=== PATIENT | female | born 1980 | race Caucasian/White ===

== ENCOUNTER 2016-09-15 10:56 | Day surgery (SDC) | payer MEDICAID ==
[2016-09-13 13:40] LABS: ADD UMIC YES; URINE BILIRUBIN (Dip) NEGATIVE (NEGATIVE); URINE BLOOD (Dip) TRACE (NEGATIVE); URINE COLOR LT. YELLOW (YELLOW); URINE GLUCOSE (Dip) NEGATIVE (NEGATIVE); URINE KETONES (Dip) NEGATIVE (NEGATIVE); URINE LEUKOCYTE ESTERASE (Dip) 2+ (NEGATIVE); URINE NITRITE (Dip) NEGATIVE (NEGATIVE); URINE TOTAL PROTEIN (Dip) NEGATIVE (NEGATIVE); URINE UROBILINOGEN (Dip) 0.2 E.U./dL (0.1-1.0)
[2016-09-13 13:41] LABS: BASOPHILS % 0.4 % (0.0-2.0); EOSINOPHILS # 0.1 10^3/ul (0.0-0.5); EOSINOPHILS % 1.9 % (0.0-7.0); HEMATOCRIT 34.6 % (37.0-47.0); HEMOGLOBIN 11.8 g/dl (12.0-16.0); LYMPHOCYTES # 1.9 10^3/ul (0.8-2.9); LYMPHOCYTES % 32.6 % (15.0-51.0); MEAN CORPUSCULAR HEMOGLOBIN 29.2 pg (29.0-33.0); MEAN CORPUSCULAR HGB CONC 34.1 g/dl (32.0-37.0); MEAN CORPUSCULAR VOLUME 85.4 fl (82.0-101.0); MEAN PLATELET VOLUME 7.3 fl (7.4-10.4); MONOCYTE # 0.4 10^3/ul (0.3-0.9); MONOCYTES % 6.4 % (0.0-11.0); NEUTROPHIL # 3.3 10^3/ul (1.6-7.5); NEUTROPHILS % 58.7 % (39.0-77.0); PLATELET COUNT 250 10^3/UL (140-440); RED BLOOD COUNT 4.05 10^6/ul (4.20-5.40); UNCORRECTED WBC 5.7 10^3/ul (4.8-10.8); WHITE BLOOD COUNT 5.7 10^3/ul (4.8-10.8)
[2016-09-13 13:45] LABS: CONDITION 1
[2016-09-13 13:52] LABS: INR 0.91; PARTIAL THROMBOPLASTIN TIME 28.2 Sec (25.0-35.0); PROTIME 12.2 Sec (12.2-14.2)
[2016-09-13 14:27] LABS: BACTERIA,URINE FEW; SQUAMOUS EPITHELIAL CELL,UR MODERATE; URINE RBCS 0-2 /HPF (0)
[2016-09-14 13:43] VITALS: Ht 172.7 cm; Wt 85.0 kg
--- NOTE | 2016-09-14 16:57 | PREOPHP ---
DATE OF ADMISSION: 09/15/2016 REASON FOR ADMISSION: Laparoscopic tubal ligation. HISTORY OF PRESENT ILLNESS: This is a 36-year-old female, 3, para 3, who has requested ster ilization on the basis of multiparity. The alternatives to this method and benefits, the risks and possible complications during and after the procedure, including the failure rate of 1% was carefull y explained to the patient in the office. Complications like infection, hemorrhage, pelvic organ in jury during the procedure was discussed in detail. She was allowed to ask questions and all her que stions were answered to her satisfaction and she signed the appropriate surgical informed consent. PAST MEDICAL HISTORY: The patient denies any medical problems including cardiovascular disease, marko betes, renal disease, liver disease, thyroid disease or neurological problems. ALLERGIES: NO KNOWN ALLERGIES. MEDICATIONS: She takes no medications on a regular basis. OBSTETRICAL HISTORY: The patient had 3 pregnancies with 3 normal vaginal deliveries. FAMILY HISTORY: Noncontributory. REVIEW OF SYSTEMS: A 12-point review of systems is noncontributory. PHYSICAL EXAMINATION: GENERAL: Well-developed and nourished, in no distress, alert and oriented x3 with a height of 5 fee t 3 inches and a weight of 180 pounds. VITAL SIGNS: Showed temperature to be 98, blood pressure 101/58, respirations 16 per minute, the pu lse is 80/minute, regular. HEENT: Within normal limits. NECK: Supple. Thyroid is nonpalpable. There is no lymphadenopathy. BREASTS: Showed no masses or lumps. LUNGS: Clear to percussion and auscultation. HEART: Normal sinus rhythm without a murmur. ABDOMEN: Soft without organomegaly or hernias. PELVIC: Normal external genitalia. Vagina is normal. Cervix is normal without lesions. Bimanual exam: The uterus small, firm, in the midline. There are no adnexal masses. EXTREMITIES: Within normal limits. NEUROLOGIC: Also normal. IMPRESSION: Multiparity. The patient desires sterilization. PLAN: The patient is to be admitted tomorrow 09/15/2016. Dictated By: IVETTE ARREOLA/JUAN PABLO Conf#: [id number] DID#: [id number]
[2016-09-15] VITALS (11 sets, daily range): BP systolic 102–124; BP diastolic 55–63; PULSE 58–79; RESP 12–19
[~2016-09-15] VITALS: Ht 172.7 cm; Wt 85.0 kg
[~2016-09-15 10:56] MED LIST: ATROPINE 1 MG/10 ML SYRINGE IV PRN; CEFAZOLIN 1 GM INJ ONE; DEXAMETHASONE 4 MG/ML 1 ML INJ ONE; DIPHENHYDRAMINE 50 MG INJ IV PRN; EPHEDrine SULFATE 50 MG/5 ML SYG IV PRN; FENTAnyl 50 MCG/ML VIAL IV PRN; FENTAnyl 50 MCG/ML VIAL ONE; FUROSEMIDE 20 MG INJ ONE; GLYCOPYRROLATE 0.4 MG INJ ONE; HYDROmorphONE (0.2 MG/ML) 10ML SYG IV PRN; LABETALOL HCL 20MG INJ IV PRN; LIDOCAINE 2% (SDV) 5 ML INJ ONE; MEPERIDINE 25 MG INJ IV PRN; MIDAZOLAM 1 MG/ML 2 ML INJ IV PRN; MIDAZOLAM 1 MG/ML 2 ML INJ ONE; NEOSTIGMINE 3 MG/3 ML SYRINGE ONE; ONDANSETRON 4 MG INJ IV PRN; ONDANSETRON 4 MG INJ ONE; OXYCODONE/ACETAMINOPHEN (5/325) TAB PO PRN; PROPOFOL 20 ML ONE; ROCURONIUM 50 MG INJ ONE; SUCCINYLCHOLINE CHLORIDE 100 MG/5 ML SYG IV ONE; hydrALAzine 20 MG INJ IV PRN; morphine (1 MG/ML) 10ML SYRINGE IV PRN
[2016-09-15] MEDS ORDERED: BUPIVACAINE 0.5%/EPI (SDV) 30 ML INJ ONE (12:53)
--- NOTE | 2016-09-15 14:02 | PD.PPDC ---
[employer] [employer] Discharge Instruction Diagnosis Final Diagnosis: Multiparity Condition Patient Condition: Good Diet Diet: Resume Regular Diet Activity/Restrictions Activity: Normal Activity May Shower Restrictions: No Lifting No Sexual Activity Nothing in the Vagina No [place] Wound/Drain Care Instructions Wound/Drain Care Instructions: Keep clean and dry Follow-up Follow-up with Physician: 1, Week/Weeks Return to clinic for HEALTHCARE RISK CONTROL CONSULTANT Instructions: Fever greater than 101 Worsening abdominal pain Excessive Vaginal Bleeding Unable to tolerate diet Surgical Instructions: Incisional Drainage Incisional Redness IVETTE ANDRES MD Sep 15, 2016 14:02
[2016-09-15] MEDS ORDERED: LACTATED RINGER'S 1,000 ML IV SCH (14:03)
--- NOTE | 2016-09-15 14:29 | OPR ---
DATE OF OPERATION: 09/15/2016 PREOPERATIVE DIAGNOSES: Multiparity. POSTOPERATIVE DIAGNOSIS: Multiparity. OPERATION PERFORMED: Laparoscopic bilateral tubal ligation. SURGEON: Ivette Taylor MD. ANESTHESIA: General. ANESTHESIOLOGIST: Dr. Au. ESTIMATED BLOOD LOSS: Negligible. SPECIMENS: None. COMPLICATIONS: None. PROCEDURE AND FINDINGS: With the patient under general anesthesia by Dr. Au, she was laid on e table in the dorsal lithotomy position. Her abdomen was prepped with ChloraPrep and the upper thi ghs, perineum and vagina with Betadine and after 3 minutes, she was draped in the usual sterile [facility] ion for this procedure. A small 5 mm incision was done at the level of the umbilicus. Through this incision and while we were tenting up the anterior abdominal wall, the Veress needle was inserted. Once the tip of the needle was ascertained to be intraperitoneal by the hanging drop of saline tech nique, it was then connected to the CO2 insufflator. Good pneumoperitoneum was obtained. The needl e was removed and a 5 mm trocar was passed in. Through this trocar, the 5 mm laparoscope with the e ndocamera was inserted. The patient was placed in Trendelenburg position. The uterus, tubes and ov merna were normal. A second trocar was placed under direct vision in the hypogastric area in the [facility]. Through this second port, the gyrus device at 35 dodson of current was inserted. The right t ube was picked up in its mid portion and burned through and through for 1.5 cm. The same was repeat ed on the contralateral side. Good hemostasis was observed. Pictures were taken for documentation. All the instruments were then removed from the patient's abdomen as well as much CO2 as possible. The incisions were infiltrated with 0.5% Marcaine with epinephrine and closed with 4-0 Monocryl. S terile Band-Aids were applied, and patient was taken to recovery room with all vital signs stable. EBL was negligible. Needle, sponge and instrument count at the end of the procedure was correct twi ce. Dictated By: IVETTE ARREOLA/NTS Conf#: [id number] DID#: [id number]
[2016-09-15] MEDS ORDERED: ACETAMINOPHEN 325 MG TAB PO PRN (14:30)
[2016-09-15] MEDS ORDERED: IBUPROFEN 600 MG TAB PO PRN (14:30)
[2016-09-15] MEDS ORDERED: morphine 2 MG INJ IV PRN (14:30)
[2016-09-15] MEDS ORDERED: ONDANSETRON 4 MG INJ IV PRN (14:30)
[2016-09-15] MEDS ORDERED: OXYCODONE/ACETAMINOPHEN (5/325) TAB PO PRN ×2 (14:30)
== END 2016-09-15 16:15 | disposition home or self-care (01) ==
LOC: SDS 10:56
PROVIDERS: ATTEND Specialist
DX: Z30.2 Encounter for sterilization (principal)
CPT/HCPCS: 58670; 81001; 84703; 85025; 85610; 85730; 86850; 86900; 86901; J0330; J0690; J1100; J2250; J2405; J2710; J3010; Z7512; Z7610; 81003; J1940